=== PATIENT | female | born 1985 | race Caucasian/White ===

== ENCOUNTER 2016-09-12 13:08 | Emergency (ER) | payer BC, OTHER | END 2016-09-12 15:34 | disposition home or self-care (01) | LOC: ER1 13:08 | DX: K61.1 Rectal abscess (principal); B95.61 Methicillin susceptible Staphylococcus aureus infection as the cause of diseases classified elsewhere; B95.62 Methicillin resistant Staphylococcus aureus infection as the cause of diseases classified elsewhere | CPT/HCPCS: 93005; 99283; Q0162 ==

== ENCOUNTER 2017-04-01 18:46 | Emergency (ER) | payer BC, OTHER | END 2017-04-01 23:03 | disposition left against medical advice (07) | LOC: ER1 18:46 | DX: Z53.21 Procedure and treatment not carried out due to patient leaving prior to being seen by health care provider (principal) ==